=== PATIENT | male | born 1985 | race Caucasian/White ===

== ENCOUNTER 2025-04-25 06:45 | Day surgery (SDC) | payer OTHER ==
[2025-04-25] MEDS ORDERED: Lactated Ringers 1,000 ML IV ONE ×2 (06:46→08:30)
[2025-04-25] MEDS ORDERED: ceFAZolin 2 GM Vial ONE (07:23)
[2025-04-25] MEDS ORDERED: Dexamethasone 4 MG/ML 5 ML MDV ONE (07:25)
[2025-04-25] MEDS ORDERED: Ondansetron 4 MG/2 ML SDV ONE (07:25)
[2025-04-25] MEDS ORDERED: dexmedeTOMIDine HCl 200 MCG/2 ML SDV ONE (07:25)
[2025-04-25] MEDS ORDERED: Midazolam 1 MG/ML 2 ML SDV ONE (07:25)
[2025-04-25] MEDS ORDERED: Ropivacaine 0.5% 5 MG/ML 30 ML SDV ONE (07:26)
[2025-04-25] MEDS ORDERED: Propofol 200 MG/20 ML SDV ONE ×3 (07:27→08:27)
[2025-04-25] MEDS: Pregabalin 25 MG Cap PO ONE (07:42)
[2025-04-25] MEDS: oxyCODONE ER 10 MG TAB.ER PO ONE (07:43)
[2025-04-25] MEDS: Acetaminophen 325 MG Tab PO ONE (07:43)
[2025-04-25] MEDS ORDERED: Sodium Chloride 0.9% 100 ML IV ONE (07:45)
[2025-04-25] MEDS: Morphine 8 MG, EPINEPHrine 0.3 MG, Cefuroxime 750 MG, Ketorolac 30 MG, Sodium Chloride ... PRN (09:04)
[2025-04-25] MEDS: VANCOmycin 1 GM SDV ONE (09:11)
[2025-04-25] MEDS: Tranexamic Acid 1,000 MG/10 ML Vial ONE (09:11)
[2025-04-25] MEDS ORDERED: Glycopyrrolate 0.2 MG/ML 2 ML SDV ONE (09:45)
[2025-04-25] MEDS ORDERED: HYDROmorphone 0.5 MG/0.5 ML Syringe IVPUSH PRN (09:50)
[2025-04-25] MEDS ORDERED: fentaNYL 100 MCG/2 ML SDV IVPUSH PRN (09:50)
[2025-04-25] MEDS ORDERED: Ondansetron 4 MG/2 ML SDV IVPUSH PRN (09:50)
[2025-04-25] MEDS: oxyCODONE 5 MG Tab PO ONE (10:42)
== END 2025-04-25 12:30 | disposition home or self-care (01) ==
LOC: JD.SDS 06:45
PROVIDERS: ATTEND Orthopaedic Surgery
DX: M17.12 Unilateral primary osteoarthritis, left knee (principal); E06.3 Autoimmune thyroiditis; Z79.890 Hormone replacement therapy; Z79.899 Other long term (current) drug therapy
CPT/HCPCS: 0055T; 27447; 73560; 97116; 97161; 97530; A9270; C1713; C1776; J0171; J0690; J0697; J1100; J1596; J1885; J2250; J2272; J2405; J2704; J2795; J7120; 01402; 64447; J3490